=== PATIENT | female | born 1995 | race Caucasian/White ===

== ENCOUNTER 2018-06-11 06:00 | Observation (INO) | payer OTHER ==
[~2018-06-11] VITALS: Ht 152.4 cm; Wt 86.2 kg
== END 2018-06-11 06:40 | disposition home or self-care (01) ==
LOC: SPU 06:00
PROVIDERS: ADMIT Obstetrics & Gynecology; ATTEND Obstetrics & Gynecology
DX: O60.03 Preterm labor without delivery, third trimester (principal); Z3A.39 39 weeks gestation of pregnancy
CPT/HCPCS: 59025; G0378